=== PATIENT | female | born 1970 | race Caucasian/White ===

== ENCOUNTER 2018-01-10 18:32 | Emergency (ER) | payer MEDICAID ==
[2018-01-10] MEDS ORDERED: Diphtheria,Pertussis(Acell),Tetanus Vaccine 0.5 ML SDV IM ONE (19:02)
[2018-01-10] MEDS ORDERED: CLAVULANATE K PO ONE (19:03)
[2018-01-10] MEDS ORDERED: AMOXICILLIN PO ONE (19:03)
--- NOTE | 2018-01-10 19:10 | EDM.PDOC ---
ED HPI GENERAL MEDICAL PROBLEM - General Chief Complaint: Skin Complaint Stated Complaint: INFECTION IN FINGER Time Seen by Provider: 01/10/18 18:55 Source of Information: Reports: Patient History Limitations: Reports: No Limitations - History of Present Illness INITIAL COMMENTS - FREE TEXT/NARRATIVE: 47 yo female was scratched and also ? bitten on her R forearm and hand today. Notes that her R hand is stiff at the DIP of her index finger where she was either bitten or scratched, she is not sure. It was between 5 and 10 yrs since her last tetanus. Does have a family doctor. The incident with the cat occurred this morning. Her cat is UTD on its vaccines. Onset: Today Onset Date: 01/10/18 Onset Time: 10:00 Duration: Hour(s):, Getting Worse Location: Reports: Upper Extremity, Right Quality: Reports: Dull Severity: Mild Improves with: Reports: None Worsens with: Reports: Other (time) Context: Reports: Other (cat bite/scratch) Associated Symptoms: Reports: No Other Symptoms Treatments [employer]: Reports: Other (see below) (none) Right 2-Index finger Pain Score (Numeric/FACES): 8 - Related Data Allergies Allergy/AdvReac Type Severity Reaction Status Date / Time No Known Allergies Allergy Verified 05/17/13 07:39 Home Meds: Home Meds Fluticasone Propionate [Flonase] 2 spray IN DAILY 01/10/18 [History] Past Medical History HEENT History: Reports: Impaired Vision GASTROENTEROLOGY NURSE History: Reports: - Past Surgical History Female Surgical History: Reports: D&C Social & Family History - Family History Family Medical History: Noncontributory - Tobacco Use Smoking Status *Q: Never Smoker - Caffeine Use Caffeine Use: Reports: None - Recreational Drug Use Recreational Drug Use: No ED ROS GENERAL - Review of Systems Review Of Systems: See Below Constitutional: Reports: No Symptoms HEENT: Reports: No Symptoms Respiratory: Reports: No Symptoms Cardiovascular: Reports: No Symptoms GI/Abdominal: Reports: No Symptoms : Reports: No Symptoms Musculoskeletal: Reports: Other (finger stiff) Skin: Reports: Erythema Neurological: Reports: No Symptoms ED EXAM, SKIN/RASH Exam: See Below Exam Limited By: No Limitations General Appearance: Alert, WD/WN, No Apparent Distress Eye Exam: Right Eye: Foreign Body, Bilateral Eye: Normal Inspection Ears: Normal External Exam Nose: Normal Inspection, Normal Mucosa, No Blood Throat/Mouth: Normal Lips, Normal Voice, No Airway Compromise Head: Atraumatic, Normocephalic Neck: Normal Inspection Respiratory/Chest: No Respiratory Distress Cardiovascular: Regular Rate, Rhythm Neurological: Alert, Oriented, CN II-XII Intact, Normal Cognition, No Motor/ Sensory Deficits Psychiatric: Normal Affect, Normal Mood Skin: Warm, Dry, Other (scratches to R forearm, not infected. DIP jt dorsally on the R index if slightly red, slightly swollen and with a decreased ROM. ) Location, Skin: Upper Extremity, Right Characteristics: Erythematous Associated features: Tenderness, Induration Lymphatic: No Adenopathy Course - Vital Signs Last Recorded V/S: Last Vital Signs Temp 36.7 C 01/10/18 18:52 Pulse 98 01/10/18 18:52 Resp 18 01/10/18 18:52 BP 145/84 H 01/10/18 18:58 Pulse Ox 96 01/10/18 18:52 - Orders/Labs/Meds Orders: Active Orders 24 hr Category Date Time Status Vaccines to be Administered [RC] PER UNIT ROUTINE Care 01/10/18 19:03 Ordered Amoxicillin/Clavulanate K [Augmentin XR 1000 MG] Med 01/10/18 19:03 Once 1 tab PO ONETIME ONE Diphth,Pertuss(Acell),Tet Vac [Adacel] Med 01/10/18 19:02 Once 0.5 ml IM .ONCE ONE Departure - Departure Time of Disposition: 19:14 Disposition: Home, Self-Care 01 Condition: Good Clinical Impression: Cat bite involving extremity - Discharge Information Referrals: Marcelo Choi MD [Primary Care Provider] - - My Orders Last 24 Hours: My Active Orders 01/10/18 19:02 Diphth,Pertuss(Acell),Tet Vac [Adacel] 0.5 ml IM .ONCE ONE 01/10/18 19:03 Vaccines to be Administered [RC] PER UNIT ROUTINE Amoxicillin/Clavulanate K [Augmentin XR 1000 MG] 1 tab PO ONETIME ONE - Assessment/Plan Last 24 Hours: My Active Orders 01/10/18 19:02 Diphth,Pertuss(Acell),Tet Vac [Adacel] 0.5 ml IM .ONCE ONE 01/10/18 19:03 Vaccines to be Administered [RC] PER UNIT ROUTINE Amoxicillin/Clavulanate K [Augmentin XR 1000 MG] 1 tab PO ONETIME ONE
[2018-01-10] MEDS ORDERED: Amoxicillin/Clavulanate K 875-125 MG Tab PO ONE (19:15)
== END 2018-01-10 19:29 | disposition home or self-care (01) ==
LOC: JP.ED 18:32
DX: S51.851A Open bite of right forearm, initial encounter (principal); S61.250A Open bite of right index finger without damage to nail, initial encounter; Z23 Encounter for immunization; W55.01XA Bitten by cat, initial encounter
CPT/HCPCS: 90471; 90715; 99283; A9270

== ENCOUNTER 2020-11-11 05:52 | Day surgery (SDC) | payer MEDICAID ==
[2020-11-11] MEDS ORDERED: Dextrose 5%-Lactated Ringers 1,000 ML IV SCH (06:15)
[2020-11-11] MEDS ORDERED: fentaNYL 100 MCG/2 ML SDV ONE (07:02)
[2020-11-11] MEDS ORDERED: Propofol 200 MG/20 ML SDV ONE ×2 (07:02→07:37)
[2020-11-11] MEDS ORDERED: Midazolam 1 MG/ML 2 ML SDV ONE (07:02)
--- NOTE | 2020-11-17 13:12 | OR ---
DATE OF PROCEDURE: 11/11/2020 SURGEON: Bakari Ashby MD PREOPERATIVE DIAGNOSIS: Indications for screening colonoscopy. POSTOPERATIVE DIAGNOSIS: Uncomplicated left colonic diverticulosis. OPERATIVE PROCEDURE: Flexible colonoscopy. ANESTHESIA: IV sedation. INDICATION FOR PROCEDURE: A 50-year-old female presenting for initial screening colonoscopy. She has no personal or family history of colonic neoplasia. The plan is to proceed with colonoscopy with biopsies and polypectomy as indicated. Potential risks including bleeding and perforation were discussed and the patient wishes to proceed. DETAILS OF PROCEDURE: The patient was taken to the operating room and placed in a left lateral decubitus position. IV sedation was administered, after which the initial digital rectal exam was performed and was unremarkable. Colonoscope was eventually passed to the level of the cecum. The prep was quite good with there being only limited amount of liquid stool present. The patient had uncomplicated left colonic diverticulosis, but otherwise no areas of colitis. There were no polyps or other signs of neoplasia. The scope was then withdrawn. The above findings reconfirmed and the procedure then concluded. Recommendation would be to repeat the colonoscopy in 10 years. Bakari Ashby MD /[id number]
== END 2020-11-11 08:48 | disposition home or self-care (01) ==
LOC: JP.SDS 05:52
PROVIDERS: ATTEND Surgery
DX: Z12.11 Encounter for screening for malignant neoplasm of colon (principal); K57.30 Diverticulosis of large intestine without perforation or abscess without bleeding; Z87.891 Personal history of nicotine dependence
CPT/HCPCS: 45378; 81025; J2250; J2704; J3010; J7121

== ENCOUNTER 2024-11-01 19:13 | Emergency (ER) | payer OTHER ==
[2024-11-01 20:11] LABS: BASOPHILS ABSOLUTE AUTO 0.03 K/uL (0.00-0.10); BASOPHILS PERCENT AUTO 0.4 % (0.1-1.3); EOSINOPHILS ABSOLUTE AUTO 0.14 K/uL (0.00-0.40); EOSINOPHILS PERCENT AUTO 1.8 % (0.0-5.4); HEMATOCRIT 38.2 % (34.3-46.0); HEMOGLOBIN 12.6 g/dL (11.2-15.5); IMMATURE GRAN PERCENT AUTO 0.3 % (0.0-0.7); LYMPHOCYTES PERCENT AUTO 30.3 % (11.4-47.7); MONOCYTES ABSOLUTE AUTO 0.53 K/uL (0.20-0.90); NEUTROPHILS ABSOLUTE AUTO 4.56 K/uL (1.0-7.6); NEUTROPHILS PERCENT AUTO 60.2 % (40.0-78.1); PLATELET COUNT,PLT 239 K/uL (130-375); RED BLOOD CELL COUNT 4.34 M/uL (3.77-5.24); WHITE BLOOD CELL COUNT,WBC 7.6 K/uL (3.2-11.0)
[2024-11-01 20:12] LABS: IMMATURE GRAN ABSOLUTE AUTO 0.02 K/uL (0.00-0.23)
[2024-11-01 20:34] LABS: ANION GAP 11.2 mmol/L (5.0-14.0); CALCIUM 9.1 mg/dL (8.5-10.1); CREATININE 1.1 mg/dL (0.6-1.0); EST CRCL DRUG DOSING (CG) 52.61 mL/min; POTASSIUM,K 3.9 mmol/L (3.6-5.2); TROPONIN I HIGH SENSITIVITY 6.2 pg/mL (<=60.3)
== END 2024-11-01 20:55 | disposition home or self-care (01) ==
LOC: JP.ED 19:13
DX: R00.2 Palpitations (principal); I10 Essential (primary) hypertension; Z87.891 Personal history of nicotine dependence; Z79.899 Other long term (current) drug therapy
CPT/HCPCS: 36415; 80048; 83735; 84484; 85025; 93005; 93010; 99283; 99285